=== PATIENT | male | born 1940 | race Caucasian/White ===

== ENCOUNTER → 2024-10-01 09:08 | Outpatient (CLI) | payer MEDICARE, SELFPAY | LOC: WC 09:26 | PROVIDERS: Family Provider Family Medicine; Referring Provider Podiatrist Foot & Ankle Surgery; Visit Provider Surgery | DX: G57.83 Other specified mononeuropathies of bilateral lower limbs (principal); L97.512 Non-pressure chronic ulcer of other part of right foot with fat layer exposed; L84 Corns and callosities | CPT/HCPCS: 11042; 87070; 87075; 87077; 87186; 87205; 99203; 99214 ==

== ENCOUNTER → 2024-10-08 13:18 | Outpatient (CLI) | payer MEDICARE, SELFPAY | PROVIDERS: Family Provider Family Medicine; Referring Provider Podiatrist Foot & Ankle Surgery; Visit Provider Surgery | DX: G57.83 Other specified mononeuropathies of bilateral lower limbs (principal); L97.512 Non-pressure chronic ulcer of other part of right foot with fat layer exposed | CPT/HCPCS: 11042; 99213 ==

== ENCOUNTER → 2024-10-08 14:27 | Outpatient (CLI) | payer MEDICARE, SELFPAY ==
--- NOTE | 2024-10-08 14:28 | DI.RAD.S_ITS ---
PROCEDURE: XR TOE RT MIN 2V INDICATIONS: right great toe ulcer x 6 weeks TECHNIQUE: 3 views of the 1st toe(s) acquired. COMPARISON: None. FINDINGS: Bones: No fractures or dislocations. Advanced degenerative changes involving the 1st distal interphalangeal joint have resulted in joint space narrowing with marginal osteophytosis and sclerosis. There is no definite radiographic evidence of osteomyelitis. No suspicious bony lesions. Old healed 2nd metatarsal fracture no Soft tissues: Ulceration of the soft tissues medially adjacent to the distal 1st phalanx noted. No suspicious soft tissue densities. IMPRESSION: Degenerative change and soft tissue ulceration medially adjacent to the distal 1st phalanx without evidence of acute osseous abnormality. Dictated by: Domo Gagnon M.D. on 10/09/2024 at 3:26 Approved by: Domo Gagnon M.D. on 10/09/2024 at 3:27
== END ==
PROVIDERS: Family Provider Family Medicine; Referring Provider Surgery; Visit Provider Surgery
DX: L97.519 Non-pressure chronic ulcer of other part of right foot with unspecified severity (principal)
CPT/HCPCS: 73660

== ENCOUNTER → 2024-10-10 13:53 | Outpatient (CLI) | payer MEDICARE, SELFPAY | PROVIDERS: Family Provider Family Medicine; Referring Provider Podiatrist Foot & Ankle Surgery; Visit Provider Physician Assistant | DX: G60.3 Idiopathic progressive neuropathy (principal); L97.512 Non-pressure chronic ulcer of other part of right foot with fat layer exposed; L84 Corns and callosities | CPT/HCPCS: 99213 ==

== ENCOUNTER → 2024-10-15 13:18 | Outpatient (CLI) | payer MEDICARE, SELFPAY | PROVIDERS: Family Provider Family Medicine; Referring Provider Podiatrist Foot & Ankle Surgery; Visit Provider Surgery | DX: L97.512 Non-pressure chronic ulcer of other part of right foot with fat layer exposed (principal); L84 Corns and callosities; G62.9 Polyneuropathy, unspecified; R23.4 Changes in skin texture | CPT/HCPCS: 11042 ==

== ENCOUNTER → 2024-10-21 15:20 | Outpatient (CLI) | payer MEDICARE, SELFPAY | PROVIDERS: Family Provider Family Medicine; Referring Provider Podiatrist Foot & Ankle Surgery; Visit Provider Surgery | DX: G57.83 Other specified mononeuropathies of bilateral lower limbs (principal) | CPT/HCPCS: 99212; 99213 ==

== ENCOUNTER → 2024-10-28 16:10 | Outpatient (CLI) | payer MEDICARE, SELFPAY ==
--- NOTE | 2024-10-28 | OV.WND_ITS ---
PROGRESS NOTE DETAILS PATIENT NAME: MARIA A BRAVO PATIENT NUMBER: [id number] CLINICIAN: CAROLINA KIM R.N. PATIENT DATE OF : 1940 PHYSICIAN / SENIOR OCCUPATIONAL THERAPIST: MAGUI PERAZA PATIENT SUBJECTIVE CHIEF COMPLAINT THIS INFORMATION WAS OBTAINED FROM THE PATIENT. I CAN MOVE MY FOOT WITHOUT ANY PAIN. GENERAL NOTES NEUROPATHIC ULCER OF RIGHT GREAT TOE. ALLERGIES NO KNOWN ALLERGIES HPI THIS INFORMATION WAS OBTAINED FROM THE PATIENT. THE FOLLOWING HPI ELEMENTS WERE DOCUMENTED FOR THE PATIENT'S WOUND: LOCATION: R GREAT TOE DURATION: 08/20/24 CONTEXT: NEUROPATHIC THE PATIENT IS AN 84-YEAR-OLD MALE WHO RETURNS TODAY FOR SURVEILLANCE OF A NEUROPATHIC ULCER OF THE RIGHT GREAT TOE THAT WAS NOTED TO BE HEALED AT HIS VISIT LAST WEEK. THE PATIENT WAS PREVIOUSLY RECEIVING DRESSING CHANGES WITH HYDROFERA BLUE AND FOOTBALL DRESSING FOR PRESSURE OFFLOADING. THE PATIENT HAS RECENTLY COMPLETED A COURSE OF AUGMENTIN. HE REPORTS SOME OCCASIONAL TENDERNESS BUT HAS NOT HAD ANY RECENT REDNESS OR SWELLING NOR HAS HE NOTED ANY DRAINAGE. THE PATIENT REPORTS A GOOD APPETITE AND DENIES HAVING ANY OTHER RECENT CHANGES IN HIS OVERALL HEALTH. HE AMBULATES WITH THE USE OF A CANE. HE DOES NOT SMOKE CIGARETTES. THE PATIENT IS CURRENTLY RESIDING IN AN ASSISTED LIVING HOME. ABIS WERE 0.95 ON THE RIGHT AND 1.01 ON THE LEFT. ON EXAM TODAY THE ULCER REMAINS HEALED AND THERE IS SOME RECURRENT CALLUS. LABS: 10/09/24: X-RAY RIGHT GREAT TOE: DEGENERATIVE CHANGE AND SOFT TISSUE ULCERATION MEDIALLY ADJACENT TO THE DISTAL 1ST PHALANX WITHOUT EVIDENCE OF ACUTE OSSEOUS ABNORMALITY. 10/01/24: CULTURES GREW ENTEROCOCCUS FAECALIS OBJECTIVE VITALS HEIGHT/LENGTH: 68 IN (172.72 CM), WEIGHT: 228.4 LBS (103.82 KGS), BMI: 34.7, TEMPERATURE: 97.3 ?F (36.28 ?C), PULSE: 85 BPM, RESPIRATORY RATE: 16 BREATHS/MIN, BLOOD PRESSURE: 156/67 MMHG, PULSE OXIMETRY: 96 %. PHYSICAL EXAM MARIA A BRAVO [id number] 1940 CONSTITUTIONAL: VITAL SIGNS REVIEWED AND NOTED. WELL DEVELOPED, WELL NOURISHED, AND IN NO ACUTE DISTRESS. ALERT AND ORIENTED X3. RESPIRATORY: EVEN RESPIRATIONS WITHOUT USE OF ACCESSORY MUSCLES. NO INTERCOASTAL RETRACTIONS NOTED. EVEN AND NON LABORED RESPIRATION. INTEGUMENTARY (HAIR, SKIN): PERIWOUND CALLUS. NO SWELLING OR TENDERNESS. SEE WOUND ASSESSMENT. SKIN WARM AND DRY. NO RASHES. NEUROLOGICAL: DECREASED LOWER EXTREMITY SENSATION. PSYCHIATRIC: ORIENTATION TO TIME, PLACE AND PERSON: NORMAL AFFECT WITH NORMAL THOUGHT PATTERN. 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 PLAN ADDITIONAL ORDERS: FOLLOW-UP APPOINTMENTS DISCHARGE FROM OUTPATIENT SERVICES. - CHECK YOUR FEET DAILY FOR SIGNS OF SKIN BREAKDOWN. PLEASE NOTIFY CLINIC AT FIRST SIGN OF ULCER RECURRENCE. OTHER ORDERS: - WE STRONGLY RECOMMEND YOU SEE A BILLING CLERK FOR ROUTINE NAIL CARE AND EVALUATION FOR INSERTS/TOE LIFT. IF YOU CHANGE YOUR MIND ABOUT A REFERRAL TO PODIATRY PLEASE CONTACT OUR CLINIC. SCRIBING ATTESTATION I ATTEST, THE NURSE, THAT I SCRIBED THESE ORDERS FOR THE WOUND CARE PROVIDER. PROVIDER REVIEW AND ATTESTATION: REVIEWED HOSPITAL RECORDS. MARIA A RBAVO [id number] 1940 DISCUSSED THE PLAN OF CARE @ BEDSIDE WITH - THE PATIENT I AGREE AND ATTEST TO THE ABOVE INFORMATION PROVIDED FROM OTHER LICENSED PROFESSIONALS. ELECTRONIC SIGNATURE(S) SIGNED BY: DATE: MAGUI PERAZA MD 10/28/2024 16:43:19 (PT) ENTERED BY: MAGUI PERAZA MD ON 10/28/2024 16:29:43 (PT) MARIA A BRAVO [id number] 1940
== END ==
LOC: WC 16:14
PROVIDERS: Family Provider Family Medicine; Referring Provider Podiatrist Foot & Ankle Surgery; Visit Provider Surgery
DX: G57.83 Other specified mononeuropathies of bilateral lower limbs (principal)
CPT/HCPCS: 99211; 99213